=== PATIENT | female | born 1950 | race Caucasian/White ===

== ENCOUNTER 2019-04-28 12:19 | Inpatient (IN) ==
[2019-04-28] MEDS ORDERED: Ketorolac 30 MG/ML VIAL IVP ONE (12:40)
[2019-04-28 13:12] LABS: Basophils % 0.5 %; Eosinophils # 0.2 K/mcL (0.0-0.6); Eosinophils % 2.5 %; Hematocrit 35.2 % (35.3-44.9); Hemoglobin 11.6 g/dL (11.5-15.4); Immature Granulocytes % 0.1 % (0-4); Lymphocytes % 25.5 %; Mean Corpuscular Hemoglobin 26.8 pg (28.0-33.3); Mean Corpuscular Volume 81.3 fL (83.0-100.0); Mean Platelet Volume 9.8 fL (9.4-12.4); Monocytes # 0.6 K/mcL (0.0-1.3); Neutrophils # 5.1 K/mcL (1.6-8.9); Platelet Count 306 K/mcL (140-400); Red Blood Count 4.33 M/mcL (3.82-4.97); Red Cell Distribution Width 14.6 % (11.5-14.5); Segmented Neutrophils % 64.4 %; White Blood Count 7.9 K/mcL (4.3-11.1)
[2019-04-28 13:26] LABS: BUN/Creatinine Ratio 9 (6-26); Blood Urea Nitrogen 7 mg/dL (8-23); Calcium 9.2 mg/dL (8.6-10.3); Carbon Dioxide 31 mEq/L (23-29); Chloride 94 mEq/L (98-107); Creatine Kinase 159 Units/L (30-223); Glucose 107 mg/dL (70-105); Osmolality,Calculated 274 (280-300); Potassium 3.3 mEq/L (3.5-5.1); Sodium 133 mEq/L (136-145); eGFR For African Americans > 60 (> 60); eGFR For Non-African Americans > 60 (> 60)
[2019-04-28 13:27] LABS: Troponin I 0.03 ng/mL (< 0.04)
[2019-04-28] MEDS ORDERED: Albuterol 2.5 MG/3 ML NEBULIZER IH PRN (16:47)
[2019-04-28] MEDS ORDERED: hydrOXYzine pamoate 25 MG CAPSULE PO PRN (16:47)
[2019-04-28] MEDS ORDERED: Naloxone 0.4 MG/ML INJ IVP PRN (16:47)
[2019-04-28] MEDS: Furosemide 40 MG TABLET PO SCH (17:22)
[2019-04-28] MEDS: OXcarbazepine 150 MG TABLET PO SCH (20:03)
[2019-04-28] MEDS: Pregabalin 75 MG CAPSULE PO SCH (20:03)
[2019-04-28] MEDS: hydrOXYzine pamoate 25 MG CAPSULE PO SCH (20:03)
[2019-04-28] MEDS: hydrALAZINE 25 MG TABLET PO SCH (20:03)
[2019-04-28] MEDS: *HR* HYDROcodone/Acet 5/325 mg TABLET PO PRN (20:34)
[2019-04-28] MEDS: Budesonide/Formoterol 160/4.5 1 PUFF INH IH SCH (21:43)
[2019-04-29 04:59] LABS: Basophils % 0.5 %; Eosinophils # 0.4 K/mcL (0.0-0.6); Hematocrit 32.7 % (35.3-44.9); Hemoglobin 10.7 g/dL (11.5-15.4); Immature Granulocytes % 0.3 % (0-4); Lymphocytes # 2.4 K/mcL (0.6-4.6); Lymphocytes % 30.6 %; Mean Corpuscular HGB Conc 32.7 g/dL (31.6-35.5); Mean Corpuscular Hemoglobin 26.9 pg (28.0-33.3); Mean Corpuscular Volume 82.2 fL (83.0-100.0); Mean Platelet Volume 9.7 fL (9.4-12.4); Monocytes # 0.6 K/mcL (0.0-1.3); Monocytes % 7.7 %; Neutrophils # 4.3 K/mcL (1.6-8.9); Platelet Count 276 K/mcL (140-400); Red Blood Count 3.98 M/mcL (3.82-4.97); Red Cell Distribution Width 14.9 % (11.5-14.5); Segmented Neutrophils % 55.9 %; White Blood Count 7.8 K/mcL (4.3-11.1)
[2019-04-29 05:22] LABS: BUN/Creatinine Ratio 9 (6-26); Blood Urea Nitrogen 8 mg/dL (8-23); Calcium 8.8 mg/dL (8.6-10.3); Carbon Dioxide 32 mEq/L (23-29); Chloride 94 mEq/L (98-107); Glucose 102 mg/dL (70-105); Magnesium 1.8 mg/dL (1.6-2.6); Osmolality,Calculated 277 (280-300); Potassium 3.6 mEq/L (3.5-5.1); Sodium 134 mEq/L (136-145); eGFR For African Americans > 60 (> 60); eGFR For Non-African Americans > 60 (> 60)
[2019-04-29 05:30] LABS: Thyroid Stimulating Hormone 10.053 mcIU/mL (0.340-5.600)
[2019-04-29] MEDS: *HR* HYDROcodone/Acet 5/325 mg TABLET PO PRN ×3 (06:09→17:54)
[2019-04-29] MEDS: *HR* Enoxaparin 40 MG/0.4 ML SYRINGE SQ SCH (06:09)
[2019-04-29] MEDS: Budesonide/Formoterol 160/4.5 1 PUFF INH IH SCH ×2 (08:20→22:27)
[2019-04-29 08:49] LABS: % Iron Saturation 9 % (15-50); Iron 30 mcg/dL (50-170); Transferrin 226 mg/dL (203-362)
[2019-04-29] MEDS ORDERED: Cholecalciferol (D-3) 1,000 UNIT (25MCG) TABLET PO SCH ×2 (09:00→09:45)
[2019-04-29 09:06] LABS: Ferritin 32 ng/mL (10-120)
[2019-04-29] MEDS: Aspirin Enteric Coated 81 MG Tablet PO SCH (09:22)
[2019-04-29] MEDS: Furosemide 40 MG TABLET PO SCH ×2 (09:22→15:57)
[2019-04-29] MEDS: hydrALAZINE 25 MG TABLET PO SCH ×3 (09:22→21:44)
[2019-04-29] MEDS: Metoprolol XL (24 HR) Succ 25 MG TAB.ER.24H PO SCH (09:22)
[2019-04-29] MEDS: Perphenazine 2 MG TABLET PO SCH (09:22)
[2019-04-29] MEDS: OXcarbazepine 150 MG TABLET PO SCH ×2 (09:23→21:43)
[2019-04-29] MEDS: Pregabalin 75 MG CAPSULE PO SCH ×2 (09:23→21:43)
[2019-04-29 10:06] LABS: Folate > 22.3 ng/mL (3.0-16.0); Vitamin B12 183 pg/mL (250-1100); Vitamin D 25 Hydroxy 14 ng/mL (30-80)
[2019-04-29] MEDS ORDERED: Cyanocobalamin (B-12) 1,000 MCG/ML VIAL IM ONE (11:24)
[2019-04-29] MEDS ORDERED: Acetaminophen 325 MG TABLET PO PRN (11:30)
[2019-04-29] MEDS: hydrOXYzine pamoate 25 MG CAPSULE PO SCH (21:44)
[2019-04-30] MEDS: *HR* Enoxaparin 40 MG/0.4 ML SYRINGE SQ SCH (06:20)
[2019-04-30] MEDS ORDERED: Ascorbic Acid 500 MG TABLET PO SCH (06:30)
[2019-04-30] MEDS ORDERED: Cyanocobalamin (B-12) 1,000 MCG TABLET PO SCH (09:00)
[2019-04-30] MEDS ORDERED: Cholecalciferol (D-3) 1,000 UNIT (25MCG) TABLET PO SCH (09:00)
[2019-04-30] MEDS: Furosemide 40 MG TABLET PO SCH ×2 (09:02→16:08)
[2019-04-30] MEDS: Aspirin Enteric Coated 81 MG Tablet PO SCH (09:02)
[2019-04-30] MEDS: hydrALAZINE 25 MG TABLET PO SCH ×3 (09:02→21:05)
[2019-04-30] MEDS: Metoprolol XL (24 HR) Succ 25 MG TAB.ER.24H PO SCH (09:02)
[2019-04-30] MEDS: OXcarbazepine 150 MG TABLET PO SCH ×2 (09:03→21:06)
[2019-04-30] MEDS: Pregabalin 75 MG CAPSULE PO SCH ×2 (09:03→21:06)
[2019-04-30] MEDS: Perphenazine 2 MG TABLET PO SCH (09:03)
[2019-04-30] MEDS: *HR* HYDROcodone/Acet 5/325 mg TABLET PO PRN (09:03)
[2019-04-30] MEDS: Budesonide/Formoterol 160/4.5 1 PUFF INH IH SCH ×2 (09:23→22:16)
[2019-04-30 19:05] VITALS: BP 115/70
[2019-04-30] MEDS: hydrOXYzine pamoate 25 MG CAPSULE PO SCH (21:06)
== END 2019-05-01 00:03 | disposition other institution (70) | DRG 563 ==
LOC: EMEROOPIK 12:19 → INPPIK 12:19
PROVIDERS: ADMIT Internal Medicine; ATTEND Internal Medicine

== ENCOUNTER 2019-04-30 18:03 | Inpatient (IN) ==
[2019-05-01] MEDS ORDERED: Albuterol 2.5 MG/3 ML NEBULIZER IH PRN (00:59)
[2019-05-01] MEDS ORDERED: hydrOXYzine pamoate 25 MG CAPSULE PO PRN (00:59)
[2019-05-01] MEDS: *HR* Enoxaparin 40 MG/0.4 ML SYRINGE SQ SCH (06:48)
[2019-05-01] MEDS: Ascorbic Acid 500 MG TABLET PO SCH (06:48)
[2019-05-01 07:40] LABS: Basophils # 0.1 K/mcL (0.0-0.2); Basophils % 0.7 %; Eosinophils # 0.5 K/mcL (0.0-0.6); Eosinophils % 6.7 %; Hematocrit 35.4 % (35.3-44.9); Hemoglobin 11.3 g/dL (11.5-15.4); Immature Granulocytes % 0.3 % (0-4); Lymphocytes # 1.9 K/mcL (0.6-4.6); Lymphocytes % 27.8 %; Mean Corpuscular HGB Conc 31.9 g/dL (31.6-35.5); Mean Corpuscular Volume 84.7 fL (83.0-100.0); Mean Platelet Volume 10.2 fL (9.4-12.4); Monocytes # 0.5 K/mcL (0.0-1.3); Monocytes % 6.8 %; Platelet Count 283 K/mcL (140-400); Red Blood Count 4.18 M/mcL (3.82-4.97); Red Cell Distribution Width 15.2 % (11.5-14.5); Segmented Neutrophils % 57.7 %; White Blood Count 6.9 K/mcL (4.3-11.1)
[2019-05-01 07:49] LABS: BUN/Creatinine Ratio 20 (6-26); Blood Urea Nitrogen 16 mg/dL (8-23); Calcium 9.3 mg/dL (8.6-10.3); Carbon Dioxide 36 mEq/L (23-29); Chloride 94 mEq/L (98-107); Glucose 98 mg/dL (70-105); Osmolality,Calculated 277 (280-300); Potassium 4.7 mEq/L (3.5-5.1); Sodium 133 mEq/L (136-145); eGFR For African Americans > 60 (> 60); eGFR For Non-African Americans > 60 (> 60)
[2019-05-01] MEDS: Perphenazine 2 MG TABLET PO SCH (08:51)
[2019-05-01] MEDS: Metoprolol XL (24 HR) Succ 25 MG TAB.ER.24H PO SCH (08:51)
[2019-05-01] MEDS: Pregabalin 75 MG CAPSULE PO SCH ×2 (08:51→21:16)
[2019-05-01] MEDS: Cyanocobalamin (B-12) 1,000 MCG TABLET PO SCH (08:51)
[2019-05-01] MEDS: Aspirin Enteric Coated 81 MG Tablet PO SCH (08:52)
[2019-05-01] MEDS: hydrALAZINE 25 MG TABLET PO SCH ×3 (08:52→21:16)
[2019-05-01] MEDS: Budesonide/Formoterol 160/4.5 1 PUFF INH IH SCH ×3 (13:13→23:06)
[2019-05-01] MEDS: hydrOXYzine pamoate 25 MG CAPSULE PO SCH (21:15)
[2019-05-02] MEDS: *HR* Enoxaparin 40 MG/0.4 ML SYRINGE SQ SCH (05:58)
[2019-05-02] MEDS: Ascorbic Acid 500 MG TABLET PO SCH (05:58)
[2019-05-02] MEDS: Pregabalin 75 MG CAPSULE PO SCH ×2 (07:51→20:40)
[2019-05-02] MEDS: Perphenazine 2 MG TABLET PO SCH (07:51)
[2019-05-02] MEDS: hydrALAZINE 25 MG TABLET PO SCH ×3 (07:52→20:39)
[2019-05-02] MEDS: Cyanocobalamin (B-12) 1,000 MCG TABLET PO SCH (07:52)
[2019-05-02] MEDS: Metoprolol XL (24 HR) Succ 25 MG TAB.ER.24H PO SCH (07:52)
[2019-05-02] MEDS: Aspirin Enteric Coated 81 MG Tablet PO SCH (07:52)
[2019-05-02] MEDS: Budesonide/Formoterol 160/4.5 1 PUFF INH IH SCH ×2 (08:27→21:51)
[2019-05-02] MEDS: hydrOXYzine pamoate 25 MG CAPSULE PO SCH (20:39)
[2019-05-02] MEDS: Acetaminophen 325 MG TABLET PO PRN (21:45)
[2019-05-03] MEDS: Ascorbic Acid 500 MG TABLET PO SCH (05:28)
[2019-05-03] MEDS: *HR* Enoxaparin 40 MG/0.4 ML SYRINGE SQ SCH (05:28)
[2019-05-03] MEDS: Acetaminophen 325 MG TABLET PO PRN (07:53)
[2019-05-03] MEDS: Pregabalin 75 MG CAPSULE PO SCH ×2 (07:53→21:19)
[2019-05-03] MEDS: Cyanocobalamin (B-12) 1,000 MCG TABLET PO SCH (07:54)
[2019-05-03] MEDS: Perphenazine 2 MG TABLET PO SCH (07:54)
[2019-05-03] MEDS: Metoprolol XL (24 HR) Succ 25 MG TAB.ER.24H PO SCH (07:55)
[2019-05-03] MEDS: Aspirin Enteric Coated 81 MG Tablet PO SCH (07:55)
[2019-05-03] MEDS: hydrALAZINE 25 MG TABLET PO SCH ×3 (07:55→21:18)
[2019-05-03] MEDS: Budesonide/Formoterol 160/4.5 1 PUFF INH IH SCH ×2 (08:12→21:14)
[2019-05-03] MEDS: diazePAM 5 MG TABLET PO PRN (12:32)
[2019-05-03] MEDS: hydrOXYzine pamoate 25 MG CAPSULE PO SCH (21:19)
[2019-05-04] MEDS: *HR* Enoxaparin 40 MG/0.4 ML SYRINGE SQ SCH (05:42)
[2019-05-04] MEDS: Ascorbic Acid 500 MG TABLET PO SCH (05:43)
[2019-05-04] MEDS: Cyanocobalamin (B-12) 1,000 MCG TABLET PO SCH (08:48)
[2019-05-04] MEDS: Perphenazine 2 MG TABLET PO SCH (08:48)
[2019-05-04] MEDS: Metoprolol XL (24 HR) Succ 25 MG TAB.ER.24H PO SCH (08:49)
[2019-05-04] MEDS: Aspirin Enteric Coated 81 MG Tablet PO SCH (08:49)
[2019-05-04] MEDS: hydrALAZINE 25 MG TABLET PO SCH ×3 (08:49→20:03)
[2019-05-04] MEDS: Pregabalin 75 MG CAPSULE PO SCH ×2 (08:49→20:03)
[2019-05-04] MEDS: Budesonide/Formoterol 160/4.5 1 PUFF INH IH SCH ×2 (10:45→20:16)
[2019-05-04] MEDS: hydrOXYzine pamoate 25 MG CAPSULE PO SCH (20:02)
[2019-05-04] MEDS: diazePAM 5 MG TABLET PO PRN (21:27)
[2019-05-05] MEDS: *HR* Enoxaparin 40 MG/0.4 ML SYRINGE SQ SCH (05:47)
[2019-05-05] MEDS: Ascorbic Acid 500 MG TABLET PO SCH (05:48)
[2019-05-05] MEDS: hydrALAZINE 25 MG TABLET PO SCH ×3 (08:32→20:51)
[2019-05-05] MEDS: Metoprolol XL (24 HR) Succ 25 MG TAB.ER.24H PO SCH (08:32)
[2019-05-05] MEDS: Pregabalin 75 MG CAPSULE PO SCH ×2 (08:33→20:51)
[2019-05-05] MEDS: Perphenazine 2 MG TABLET PO SCH (08:33)
[2019-05-05] MEDS: Aspirin Enteric Coated 81 MG Tablet PO SCH (08:33)
[2019-05-05] MEDS: Cyanocobalamin (B-12) 1,000 MCG TABLET PO SCH (08:33)
[2019-05-05] MEDS: Budesonide/Formoterol 160/4.5 1 PUFF INH IH SCH ×2 (09:41→22:34)
[2019-05-05] MEDS: hydrOXYzine pamoate 25 MG CAPSULE PO SCH (20:52)
[2019-05-06] MEDS: *HR* Enoxaparin 40 MG/0.4 ML SYRINGE SQ SCH (06:11)
[2019-05-06] MEDS: Ascorbic Acid 500 MG TABLET PO SCH (06:11)
[2019-05-06] MEDS: Budesonide/Formoterol 160/4.5 1 PUFF INH IH SCH ×2 (09:19→21:58)
[2019-05-06] MEDS: Pregabalin 75 MG CAPSULE PO SCH ×2 (09:54→20:29)
[2019-05-06] MEDS: Perphenazine 2 MG TABLET PO SCH (09:55)
[2019-05-06] MEDS: hydrALAZINE 25 MG TABLET PO SCH ×3 (09:55→20:28)
[2019-05-06] MEDS: Aspirin Enteric Coated 81 MG Tablet PO SCH (09:56)
[2019-05-06] MEDS: Metoprolol XL (24 HR) Succ 25 MG TAB.ER.24H PO SCH (09:56)
[2019-05-06] MEDS: Cyanocobalamin (B-12) 1,000 MCG TABLET PO SCH (09:56)
[2019-05-06] MEDS: Acetaminophen 325 MG TABLET PO PRN ×2 (10:01→15:50)
[2019-05-06] MEDS: hydrOXYzine pamoate 25 MG CAPSULE PO SCH (20:29)
[2019-05-07] MEDS: Ascorbic Acid 500 MG TABLET PO SCH (06:09)
[2019-05-07] MEDS: *HR* Enoxaparin 40 MG/0.4 ML SYRINGE SQ SCH (06:09)
[2019-05-07] MEDS: Budesonide/Formoterol 160/4.5 1 PUFF INH IH SCH ×2 (08:05→21:49)
[2019-05-07] MEDS: hydrALAZINE 25 MG TABLET PO SCH ×3 (09:01→19:42)
[2019-05-07] MEDS: Pregabalin 75 MG CAPSULE PO SCH ×2 (09:01→19:41)
[2019-05-07] MEDS: Perphenazine 2 MG TABLET PO SCH (09:02)
[2019-05-07] MEDS: Cyanocobalamin (B-12) 1,000 MCG TABLET PO SCH (09:02)
[2019-05-07] MEDS: Metoprolol XL (24 HR) Succ 25 MG TAB.ER.24H PO SCH (09:02)
[2019-05-07] MEDS: Aspirin Enteric Coated 81 MG Tablet PO SCH (09:02)
[2019-05-07] MEDS: Acetaminophen 325 MG TABLET PO PRN (15:13)
[2019-05-07] MEDS: traMADol 50 MG TABLET PO PRN (19:41)
[2019-05-07] MEDS: hydrOXYzine pamoate 25 MG CAPSULE PO SCH (19:42)
[2019-05-08] MEDS: *HR* Enoxaparin 40 MG/0.4 ML SYRINGE SQ SCH (06:19)
[2019-05-08] MEDS: Ascorbic Acid 500 MG TABLET PO SCH (06:19)
[2019-05-08] MEDS: Cyanocobalamin (B-12) 1,000 MCG TABLET PO SCH (08:14)
[2019-05-08] MEDS: Pregabalin 75 MG CAPSULE PO SCH ×2 (08:14→22:29)
[2019-05-08] MEDS: Aspirin Enteric Coated 81 MG Tablet PO SCH (08:14)
[2019-05-08] MEDS: Metoprolol XL (24 HR) Succ 25 MG TAB.ER.24H PO SCH (08:14)
[2019-05-08] MEDS: Perphenazine 2 MG TABLET PO SCH (08:14)
[2019-05-08] MEDS: hydrALAZINE 25 MG TABLET PO SCH ×3 (08:14→22:30)
[2019-05-08] MEDS: Budesonide/Formoterol 160/4.5 1 PUFF INH IH SCH ×2 (08:21→22:01)
[2019-05-08] MEDS: hydrOXYzine pamoate 25 MG CAPSULE PO SCH (22:30)
[2019-05-09] MEDS: Ascorbic Acid 500 MG TABLET PO SCH (06:05)
[2019-05-09] MEDS: *HR* Enoxaparin 40 MG/0.4 ML SYRINGE SQ SCH (06:05)
[2019-05-09] MEDS: Pregabalin 75 MG CAPSULE PO SCH ×2 (09:18→21:26)
[2019-05-09] MEDS: hydrALAZINE 25 MG TABLET PO SCH ×3 (09:18→21:26)
[2019-05-09] MEDS: Perphenazine 2 MG TABLET PO SCH (09:18)
[2019-05-09] MEDS: Aspirin Enteric Coated 81 MG Tablet PO SCH (09:19)
[2019-05-09] MEDS: Cyanocobalamin (B-12) 1,000 MCG TABLET PO SCH (09:19)
[2019-05-09] MEDS: Metoprolol XL (24 HR) Succ 25 MG TAB.ER.24H PO SCH (09:19)
[2019-05-09] MEDS: Budesonide/Formoterol 160/4.5 1 PUFF INH IH SCH ×2 (10:14→22:12)
[2019-05-09] MEDS: hydrOXYzine pamoate 25 MG CAPSULE PO SCH (21:26)
[2019-05-10] MEDS: *HR* Enoxaparin 40 MG/0.4 ML SYRINGE SQ SCH (05:19)
[2019-05-10] MEDS: Ascorbic Acid 500 MG TABLET PO SCH (05:19)
[2019-05-10] MEDS: Pregabalin 75 MG CAPSULE PO SCH ×2 (09:12→20:04)
[2019-05-10] MEDS: hydrALAZINE 25 MG TABLET PO SCH ×3 (09:12→20:05)
[2019-05-10] MEDS: Perphenazine 2 MG TABLET PO SCH (09:12)
[2019-05-10] MEDS: Aspirin Enteric Coated 81 MG Tablet PO SCH (09:12)
[2019-05-10] MEDS: Metoprolol XL (24 HR) Succ 25 MG TAB.ER.24H PO SCH (09:12)
[2019-05-10] MEDS: Cyanocobalamin (B-12) 1,000 MCG TABLET PO SCH (09:12)
[2019-05-10] MEDS: Budesonide/Formoterol 160/4.5 1 PUFF INH IH SCH ×2 (10:22→20:37)
[2019-05-10] MEDS: hydrOXYzine pamoate 25 MG CAPSULE PO SCH (20:05)
[2019-05-11] MEDS: Ascorbic Acid 500 MG TABLET PO SCH (06:24)
[2019-05-11] MEDS: *HR* Enoxaparin 40 MG/0.4 ML SYRINGE SQ SCH (06:25)
[2019-05-11] MEDS: Pregabalin 75 MG CAPSULE PO SCH ×2 (08:04→19:54)
[2019-05-11] MEDS: Aspirin Enteric Coated 81 MG Tablet PO SCH (08:05)
[2019-05-11] MEDS: Perphenazine 2 MG TABLET PO SCH (08:05)
[2019-05-11] MEDS: Metoprolol XL (24 HR) Succ 25 MG TAB.ER.24H PO SCH (08:05)
[2019-05-11] MEDS: Cyanocobalamin (B-12) 1,000 MCG TABLET PO SCH (08:05)
[2019-05-11] MEDS: hydrALAZINE 25 MG TABLET PO SCH ×3 (08:06→19:54)
[2019-05-11] MEDS: Budesonide/Formoterol 160/4.5 1 PUFF INH IH SCH ×2 (09:00→22:23)
[2019-05-11] MEDS: traMADol 50 MG TABLET PO PRN (16:22)
[2019-05-11] MEDS: hydrOXYzine pamoate 25 MG CAPSULE PO SCH (19:54)
[2019-05-12] MEDS: Ascorbic Acid 500 MG TABLET PO SCH (06:23)
[2019-05-12] MEDS: *HR* Enoxaparin 40 MG/0.4 ML SYRINGE SQ SCH (06:23)
[2019-05-12] MEDS: Aspirin Enteric Coated 81 MG Tablet PO SCH (08:13)
[2019-05-12] MEDS: Cyanocobalamin (B-12) 1,000 MCG TABLET PO SCH (08:13)
[2019-05-12] MEDS: Pregabalin 75 MG CAPSULE PO SCH ×2 (08:13→19:52)
[2019-05-12] MEDS: Perphenazine 2 MG TABLET PO SCH (08:13)
[2019-05-12] MEDS: Metoprolol XL (24 HR) Succ 25 MG TAB.ER.24H PO SCH (08:13)
[2019-05-12] MEDS: hydrALAZINE 25 MG TABLET PO SCH ×3 (08:14→19:52)
[2019-05-12] MEDS: traMADol 50 MG TABLET PO PRN ×2 (08:19→19:51)
[2019-05-12] MEDS: Budesonide/Formoterol 160/4.5 1 PUFF INH IH SCH ×2 (09:52→22:23)
[2019-05-12] MEDS: hydrOXYzine pamoate 25 MG CAPSULE PO SCH (19:51)
[2019-05-13 05:40] LABS: Basophils % 0.5 %; Eosinophils # 0.4 K/mcL (0.0-0.6); Eosinophils % 5.8 %; Hematocrit 33.4 % (35.3-44.9); Hemoglobin 10.2 g/dL (11.5-15.4); Immature Granulocytes % 0.2 % (0-4); Lymphocytes # 2.1 K/mcL (0.6-4.6); Lymphocytes % 33.3 %; Mean Corpuscular HGB Conc 30.5 g/dL (31.6-35.5); Mean Corpuscular Hemoglobin 26.6 pg (28.0-33.3); Monocytes # 0.4 K/mcL (0.0-1.3); Monocytes % 5.8 %; Neutrophils # 3.4 K/mcL (1.6-8.9); Platelet Count 193 K/mcL (140-400); Red Blood Count 3.84 M/mcL (3.82-4.97); Red Cell Distribution Width 15.8 % (11.5-14.5); Segmented Neutrophils % 54.4 %; White Blood Count 6.2 K/mcL (4.3-11.1)
[2019-05-13 06:11] LABS: BUN/Creatinine Ratio 19 (6-26); Blood Urea Nitrogen 15 mg/dL (8-23); Calcium 9.2 mg/dL (8.6-10.3); Carbon Dioxide 35 mEq/L (23-29); Chloride 105 mEq/L (98-107); Glucose 86 mg/dL (70-105); Osmolality,Calculated 298 (280-300); Potassium 4.4 mEq/L (3.5-5.1); Sodium 144 mEq/L (136-145); eGFR For African Americans > 60 (> 60); eGFR For Non-African Americans > 60 (> 60)
[2019-05-13] MEDS: *HR* Enoxaparin 40 MG/0.4 ML SYRINGE SQ SCH (06:11)
[2019-05-13] MEDS: Ascorbic Acid 500 MG TABLET PO SCH (06:12)
[2019-05-13] MEDS: Aspirin Enteric Coated 81 MG Tablet PO SCH (08:11)
[2019-05-13] MEDS: Metoprolol XL (24 HR) Succ 25 MG TAB.ER.24H PO SCH (08:11)
[2019-05-13] MEDS: hydrALAZINE 25 MG TABLET PO SCH ×3 (08:12→21:02)
[2019-05-13] MEDS: Pregabalin 75 MG CAPSULE PO SCH ×2 (08:12→21:02)
[2019-05-13] MEDS: Perphenazine 2 MG TABLET PO SCH (08:12)
[2019-05-13] MEDS: traMADol 50 MG TABLET PO PRN (08:12)
[2019-05-13] MEDS: Cyanocobalamin (B-12) 1,000 MCG TABLET PO SCH (08:12)
[2019-05-13] MEDS: Budesonide/Formoterol 160/4.5 1 PUFF INH IH SCH ×2 (09:17→22:42)
[2019-05-13] MEDS: hydrOXYzine pamoate 25 MG CAPSULE PO SCH (21:02)
[2019-05-14] MEDS: *HR* Enoxaparin 40 MG/0.4 ML SYRINGE SQ SCH (05:06)
[2019-05-14] MEDS: Ascorbic Acid 500 MG TABLET PO SCH (05:06)
[2019-05-14 07:29] VITALS: BP 139/81
[2019-05-14] MEDS: hydrALAZINE 25 MG TABLET PO SCH (08:44)
[2019-05-14] MEDS: Pregabalin 75 MG CAPSULE PO SCH (08:45)
[2019-05-14] MEDS: Cyanocobalamin (B-12) 1,000 MCG TABLET PO SCH (08:46)
[2019-05-14] MEDS: Perphenazine 2 MG TABLET PO SCH (08:46)
[2019-05-14] MEDS: Metoprolol XL (24 HR) Succ 25 MG TAB.ER.24H PO SCH (08:46)
[2019-05-14] MEDS: Aspirin Enteric Coated 81 MG Tablet PO SCH (08:47)
[2019-05-14] MEDS: Budesonide/Formoterol 160/4.5 1 PUFF INH IH SCH (10:50)
== END 2019-05-14 13:11 | disposition home health service (06) | DRG 560 ==
LOC: INPPIK 05-01 00:27
PROVIDERS: ADMIT Internal Medicine; ATTEND Internal Medicine

== ENCOUNTER 2020-07-08 14:54 | Observation (INO) ==
[2020-07-08 15:21] LABS: Basophils # 0.1 K/mcL (0.0-0.2); Basophils % 0.7 %; Eosinophils # 0.3 K/mcL (0.0-0.6); Eosinophils % 3.8 %; Hematocrit 32.3 % (35.3-44.9); Hemoglobin 11.1 g/dL (11.5-15.4); Immature Granulocytes % 0.4 % (0-4); Lymphocytes # 1.4 K/mcL (0.6-4.6); Lymphocytes % 20.3 %; Mean Corpuscular HGB Conc 34.4 g/dL (31.6-35.5); Mean Corpuscular Volume 78.6 fL (83.0-100.0); Mean Platelet Volume 9.2 fL (9.4-12.4); Monocytes # 0.5 K/mcL (0.0-1.3); Monocytes % 7.5 %; Neutrophils # 4.6 K/mcL (1.6-8.9); Platelet Count 269 K/mcL (140-400); Red Blood Count 4.11 M/mcL (3.82-4.97); Segmented Neutrophils % 67.3 %; White Blood Count 6.8 K/mcL (4.3-11.1)
[2020-07-08 15:29] LABS: Prothrombin Time 11.6 Seconds (9.4-12.1)
[2020-07-08 15:36] LABS: Magnesium 1.7 mg/dL (1.6-2.6); Phosphorous 3.6 mg/dL (2.7-4.5)
[2020-07-08 15:40] LABS: Troponin I < 0.03 ng/mL (< 0.04)
[2020-07-08 15:41] LABS: Alanine Aminotransferase 15 Units/L (7-52); Albumin/Globulin Ratio 1.5 (1.1-2.2); Alkaline Phosphatase 122 Units/L (34-104); Aspartate Amino Transferase 16 Units/L (13-39); BUN/Creatinine Ratio 18 (6-26); Bilirubin,Total 0.1 mg/dL (0.3-1.0); Blood Urea Nitrogen 10 mg/dL (8-23); Calcium 8.6 mg/dL (8.6-10.3); Carbon Dioxide 28 mEq/L (23-29); Chloride 84 mEq/L (98-107); Globulin 2.6 g/dL (2.4-3.5); Glucose 102 mg/dL (70-105); Osmolality,Calculated 249 (280-300); Potassium 3.9 mEq/L (3.5-5.1); Sodium 120 mEq/L (136-145); Total Protein 6.6 g/dL (6.4-8.9); eGFR For African Americans > 60 (> 60); eGFR For Non-African Americans > 60 (> 60)
[2020-07-08] MEDS ORDERED: 0.9 % Sodium Chloride 1,000 ML IVC SCH (15:45)
[2020-07-08 16:12] LABS: Bilirubin,Urine Negative (Negative); Blood,Urine Negative (Negative); Clarity,Urine Clear (Clear); Color,Urine Yellow (Yellow); Glucose,Urine (UA) Normal (Normal); Ketones,Urine Trace mg/dL (Negative); Leukocyte Esterase,Urine Negative (Negative); Nitrite,Urine Negative (Negative); Protein,Urine Negative (Neg-Trace); Specific Gravity,Urine 1.015 (1.010-1.025); Urobilinogen,Urine Normal (Normal)
[2020-07-08] MEDS ORDERED: Acetaminophen 325 MG TABLET PO PRN (17:37)
[2020-07-08] MEDS ORDERED: MOM Conc 10 ML UD.LIQ PO PRN (17:37)
[2020-07-08] MEDS ORDERED: Mag Hydrox/Al Hydrox/Simeth 30 ML UDC PO PRN (17:37)
[2020-07-08] MEDS ORDERED: Naloxone 0.4 MG/ML INJ IVP PRN (17:37)
[2020-07-08] MEDS ORDERED: Ondansetron 4 MG/2 ML VIAL IVP PRN (17:37)
[2020-07-08] MEDS ORDERED: hydrOXYzine pamoate 25 MG CAPSULE PO SCH (20:00)
[2020-07-08] MEDS: Nystatin POWDER 30 GM BOTTLE TP SCH (21:00)
[2020-07-08] MEDS: OXcarbazepine 150 MG TABLET PO SCH (21:00)
[2020-07-09] MEDS: Budesonide/Formoterol 160/4.5 1 PUFF INH IH SCH ×2 (00:55→08:32)
[2020-07-09] MEDS: 0.9 % Sodium Chloride 1,000 ML IVC SCH ×2 (03:38→08:12)
[2020-07-09] MEDS ORDERED: Cyanocobalamin (B-12) 1,000 MCG TABLET PO SCH (08:00)
[2020-07-09] MEDS ORDERED: Metoprolol XL (24 HR) Succ 50 MG TAB.ER.24H PO SCH (08:00)
[2020-07-09 08:04] LABS: Basophils % 0.3 %; Eosinophils # 0.1 K/mcL (0.0-0.6); Eosinophils % 1.6 %; Hematocrit 33.7 % (35.3-44.9); Hemoglobin 11.4 g/dL (11.5-15.4); Immature Granulocytes % 0.3 % (0-4); Lymphocytes # 1.1 K/mcL (0.6-4.6); Lymphocytes % 17.4 %; Mean Corpuscular HGB Conc 33.8 g/dL (31.6-35.5); Mean Corpuscular Hemoglobin 26.6 pg (28.0-33.3); Mean Corpuscular Volume 78.7 fL (83.0-100.0); Mean Platelet Volume 9.6 fL (9.4-12.4); Monocytes # 0.4 K/mcL (0.0-1.3); Monocytes % 5.7 %; Neutrophils # 4.7 K/mcL (1.6-8.9); Platelet Count 276 K/mcL (140-400); Red Blood Count 4.28 M/mcL (3.82-4.97); Red Cell Distribution Width 14.2 % (11.5-14.5); Segmented Neutrophils % 74.7 %; White Blood Count 6.3 K/mcL (4.3-11.1)
[2020-07-09 08:25] LABS: BUN/Creatinine Ratio 11 (6-26); Blood Urea Nitrogen 5 mg/dL (8-23); Calcium 8.5 mg/dL (8.6-10.3); Carbon Dioxide 27 mEq/L (23-29); Chloride 95 mEq/L (98-107); Glucose 121 mg/dL (70-105); Osmolality,Calculated 267 (280-300); Potassium 4.4 mEq/L (3.5-5.1); Sodium 129 mEq/L (136-145); eGFR For African Americans > 60 (> 60); eGFR For Non-African Americans > 60 (> 60)
[2020-07-09] MEDS ORDERED: lisinopriL 10 MG TABLET PO SCH (09:00)
[2020-07-09] MEDS ORDERED: Perphenazine 2 MG TABLET PO SCH (09:00)
[2020-07-09] MEDS ORDERED: Aspirin Enteric Coated 325 MG Tablet PO SCH (09:00)
[2020-07-09] MEDS: Nystatin POWDER 30 GM BOTTLE TP SCH (09:15)
[2020-07-09] MEDS ORDERED: hydrOXYzine pamoate 25 MG CAPSULE PO SCH (14:00)
[2020-07-09] MEDS: OXcarbazepine 150 MG TABLET PO SCH (15:46)
[2020-07-09 16:58] LABS: BUN/Creatinine Ratio 10 (6-26); Blood Urea Nitrogen 6 mg/dL (8-23); Calcium 9.1 mg/dL (8.6-10.3); Carbon Dioxide 27 mEq/L (23-29); Chloride 97 mEq/L (98-107); Glucose 106 mg/dL (70-105); Osmolality,Calculated 270 (280-300); Potassium 4.1 mEq/L (3.5-5.1); Sodium 131 mEq/L (136-145); eGFR For African Americans > 60 (> 60); eGFR For Non-African Americans > 60 (> 60)
[2020-07-09] MEDS ORDERED: cloNIDine HCL 0.1 MG TABLET PO ONE (17:24)
[2020-07-09 18:31] VITALS: BP 155/76
[2020-07-09] MEDS ORDERED: Ondansetron ODT 4 MG TAB.RAPDIS SL ONE (19:01)
== END 2020-07-09 19:33 | disposition home health service (06) ==
LOC: INPPIK 14:54 → EMEROOPIK 14:54 → INPPIK 18:50
PROVIDERS: ADMIT Family Medicine; ATTEND Family Medicine